=== PATIENT | male | born 1950 | race Caucasian/White ===

== ENCOUNTER 2019-02-12 16:03 | Inpatient (IN) | payer MEDICARE, OTHER ==
[~2019-02-12] VITALS: Ht 167.6 cm; Wt 72.6 kg
[~2019-02-12 16:03] MED LIST: ASPIR-LOW81 M1 PO; LOP50 PO; ZOC20 PO
[2019-02-12 16:30] VITALS: Ht 167.6 cm; Wt 72.6 kg
--- NOTE | 2019-02-12 16:39 | NUR ---
PT BROUGHT IN BY FOR DIZZINESS THAT STARTED THIS AM UPON AWAKENING UP. ALSO C/O CHRONIC RT LEG PAIN. DENIES CP OR SOB. RESP EVEN AND UNLABORED, INNAD AT 94%. DIZZINES GOT WORSE THIS MORNING WITH INCREASED IN DIFFICULTY IN WALKING IN THE LAST MONTH. DENIES FALL. MED HX: LYMPHOMA, BACK SURGERY, CARDIAC HX WITH IMPLANTED DEFIBRILATOR. DENIES FEVERS/CHILLS, NO COUGH. VSS, WAILL WAIT FOR ER MD SILVA.
[2019-02-12 18:59] LABS: BASOPHIL % 0.6 % (0-2)
[2019-02-12 19:01] LABS: PLATELET COUNT 560 x10^3mcL (130-400); RED CELL DISTRIBUTION WIDTH 18.9 % (11.5-14.5)
--- NOTE | 2019-02-12 19:01 | NUR ---
NO ACUTE CHNAGE IN CONDITON, MEDICATED ORDERED.
[2019-02-12 19:08] LABS: CALCIUM 9.5 mg/dL (8.5-10.1); CARBON DIOXIDE 27.1 mmol/L (21-32); CREATININE SERUM 2.5 mg/dL (0.7-1.3)
[2019-02-12 19:22] LABS: microscopic required? NO
[2019-02-12 19:22] LABS: BILIRUBIN TOTAL 0.3 mg/dL (0.20-1.00); MAGNESIUM 1.9 mg/dL (1.8-2.4)
[2019-02-12 19:23] LABS: ALBUMIN 2.3 g/dL (3.4-5.0); T4(THYROXINE) 3.2 ug/dL (4.7-13.3)
--- NOTE | 2019-02-12 19:27 | NUR ---
RECEIVED PT AWAKE, ALERT, RESPIRATIONS EVEN AND UNLABORED. IN INFUSING WELL AT THIS TIME. PT DENIES DIZZINESS. SAFETY PRECAUTIONS IN PLACE. SIGNIFICANT OTHER AT BEDSIDE
[2019-02-12 19:56] LABS: urine erythrocyte NEGATIVE (NEGATIVE)
--- NOTE | 2019-02-12 20:05 | NUR ---
PT WAS REPORTING SHORTNESS OF BREATH. PT NOTED TO BE SLIGHTLY TACHYPNIC. DENIES CHEST PAIN, PRESSURE. REPORTS DIZZINESS. PT WAS PLACED ON 2L 02/NC AND PLACED HOB AT [address] BRISCOE WAS MADE AWARE AND STATED TO HAVE ABG DRAWN. JAS ANDERSON WAS MADE AWARE. WILL CONTINUE TO MONITOR CLOSELY. SAFETY PRECAUTIONS IN PLACE
--- NOTE | 2019-02-12 20:09 | NUR ---
DR. BRISCOE WAS AT BEDSIDE TO ASSESS PATIENT. JAS RT AT BEDSIDE FOR ABG
--- NOTE | 2019-02-12 20:26 | NUR ---
DR. BRISCOE MADE AWARE OF CRITICAL CHEST XRAY REST, DR. BRISCOE VERBALIZED UNDERSTANDING AND WENT INTO ROOM TO SPEAK TO PATIENT REGARDING FINDINGS
--- NOTE | 2019-02-12 20:45 | NUR ---
PT DENIES SOB AT THIS TIME. AWAKE, ALERT, RESPIRATIONS EVEN AND UNLABORED. SITTING AT 90 DEGREE ANGLE. SIGNIFICANT OTHER AT BEDSIDE. SAFETY PRECAUTIONS IN PLACE
[2019-02-12] MEDS ORDERED: BAYER ASPIRIN R81 MG PO (20:53)
[2019-02-12] MEDS ORDERED: CARVEDILOL6.25 M1 PO (20:53)
[2019-02-12] MEDS ORDERED: AMIODARONE HCL200 MG PO (20:53)
[2019-02-12] MEDS ORDERED: LIPI10 PO (20:53)
[2019-02-12] MEDS ORDERED: NOR10T PO (20:54)
[2019-02-12] MEDS ORDERED: MIRTAZAPINE15 M2 PO (20:54)
[2019-02-12] MEDS ORDERED: NARCAN4 MG NS (20:54)
[2019-02-12] MEDS ORDERED: SENNA8.6 M2 PO (20:55)
[2019-02-12 21:24] LABS: FREE T4 0.52 ng/dL (0.76-1.46); T3 TOTAL 0.35 ng/mL
[2019-02-12 21:26] LABS: FREE THYROXINE INDEX 1.1 ug/dL (1.4-4.5); T4(THYROXINE) 3.2 ug/dL (4.7-13.3)
--- NOTE | 2019-02-12 21:33 | NUR ---
REPORT GIVEN TO HOSSEIN ARIAS, ALL QUESTIONS AND CONCERNS WERE ADDRESSED
--- NOTE | 2019-02-12 22:09 | NUR ---
RECEIVED [facility], ACCOMPANIED BY RN, TRANSPORTER, AND PT'S , JOAO CARPENTER. PT A/A/O X 4, CALM, COOPERATIVE. WEAKNESS TO BLE, WAS ABLE TO SCOOT OVER FROM GUERNEY TO BED ON HIS OWN; USES W/C @HOME/BEDSIDE; INCREASING WEAKNESS X 1 MONTH; FALL RISK PROTOCOL IN PLACE. ON TELE # 9, NSR, HR 76, DENIES CHEST PAIN OR DISCOMFORT AT THIS TIME. LUNGS CTAB, CHEST RISING EVENLY, 2LNC, 98%; NOTED ENLARGED NECK: PT STATES THAT IT IS BECAUSE OF "CANCER"; NO DYSPHAGIA, NO RESPIRATORY DISTRESS NOTED; TSH @ 40.95, AND PT DOES NOT HAVE DX OF HYPOTHYROIDISM. ABD SOFT, ROUND, NON-TENDER, NORMOACTIVE BOWEL SOUNDS X 4 QUADS, LAST BM 02/12/19, DIARRHEA, STATES LOST WEIGHT > 10# X 1 MONTH. VOIDS FREELY, C/O OLIGURIA. IV SITE LFA 20G, CDI. ORIENTED PT TO ROOM, BED CONTROLS, CALL LIGHT SYSTEM. SIDE RAILS UP X 2, BED IN LOW POSITION. WILL ENDORSE TO JUANA HIDALGO.
[2019-02-12 22:24] LABS: AMPHETAMINE QUAL UR NONE DETECTED (See below)
[2019-02-12 22:53] VITALS: BP 137/61
[2019-02-12 23:10] VITALS: BP 137/61
--- NOTE | 2019-02-13 03:03 | NUR ---
PT RESTING IN BED COMFORTABLY WITH EYES CLOSED. NASAL CANULA 2L DOES NOT APPEAR TO BE IN ANY ACUTE DISTRESS. BREATHING EVEN AND UNLABORED. SAFETY MEASURES ARE IN PLACE. CALL LIGHT IS WITHIN REACH. WILL MONITOR.
--- NOTE | 2019-02-13 03:04 | NUR ---
RESIDENT AND DR VALADEZ AWARE OF PT TSH LEVELS. NO NEW ORDERS AT THIS TIME.
[2019-02-13 05:57] VITALS: BP 124/61
--- NOTE | 2019-02-13 06:04 | NUR ---
SPOKE WITH PT HE DENIES PAIN AT THIS TIME. NO SOB OR CHEST PAIN NOTED ON 2L NASAL CANULA. PT DOES NOT APPEAR TO BE IN ANY ACUTE DISTRESS. SAFETY MEASURES IN PLACE. CALL LIGHT WITHIN REACH. WILL ENDORSE TO DAY SHIFT RN.
[2019-02-13 07:20] LABS: BASOPHIL % 0 % (0-2); RED CELL DISTRIBUTION WIDTH 18.3 % (11.5-14.5)
[2019-02-13 07:21] LABS: PLATELET COUNT 589 x10^3mcL (130-400)
--- NOTE | 2019-02-13 07:30 | NUR ---
PT IS AAOX4. RESP EVEN, SHALLOW AND UNLABORED. LUNG SOUNDS DIMINISHED BILATERAL BASES. TELE [address] READING NSR. ABDOMEN SOFT, NONTENDER, NONDISTENDED. BOWEL SOUNDS ACTIVE X4 QUADS. PT HAS C/O DIARRHEA. NO C/O OF N/V. PT HAS GENERALIZED WEAKNESS AND USES W/C AT BASELINE. SKIN CDI. NO EDEMA NOTED. PERIPHERAL PULSES MODERATELY PALPABLE. IVF RUNNING TO LFA. SITE WNL. PT DENIES PAIN AT THIS TIME. PT HAS L SIDED ENLARGED NECK SECONDARY TO LYMPHOMA. AREA IN IS INTACT AND EMISSIONS INSPECTOR. [facility]. BED IN LOWEST POSITION. FALL PROTOCOL FOLLOWED. CALL LIGHT WITHIN REACH.
[2019-02-13 07:31] LABS: BILIRUBIN TOTAL 0.3 mg/dL (0.20-1.00); CALCIUM 9.3 mg/dL (8.5-10.1); CARBON DIOXIDE 22.1 mmol/L (21-32); CREATININE SERUM 2.1 mg/dL (0.7-1.3)
[2019-02-13 07:34] LABS: ALBUMIN 2.3 g/dL (3.4-5.0); TOTAL PROTEIN, SERUM 5.9 g/dL (6.4-8.2)
[2019-02-13 08:09] VITALS: BP 121/65
--- NOTE | 2019-02-13 09:35 | NUR ---
NORCO 10/325MG PO GIVEN FOR LOWER THROBBING BACK PAIN 02/11. FLUIDS ENCOURAGED. SCHEDULED MEDS GIVEN, B/P 121/65, HR 72. PT IS SITTING UP IN BED VISITING WITH AT BEDSIDE. PT JUST COMPLETED RESP TX. RESP EVEN AND UNLABORED. NO RESP DISTRESS NOTED. CALL LIGHT WITHIN REACH.
--- NOTE | 2019-02-13 11:45 | NUR ---
PT IS SITTING UP AT BEDSIDE VISITING WITH . RESP EVEN AND UNLABORED. NO DISTRESS NOTED. CALL LIGHT WITHIN REACH.
[2019-02-13 12:52] VITALS: BP 121/65
--- NOTE | 2019-02-13 14:55 | NUR ---
[employer] CONTACTED, INTERROGATION OF THE PT'S PACEMAKER REQUESTED.
--- NOTE | 2019-02-13 15:29 | NUR ---
[employer] REFUSED TO INTERROGATE DEFIBRILLATOR WITH PT'S S/S THAT HAVE BEEN LISTED, I.E. DIZZINESS, SYNCOPE, BACK PAIN, WEIGHT LOSS. ONLINE PROJECT MANAGER STATED A REPRODUCTION ARTIST WILL NEED TO ORDER AND INTERROGATION. DR. DOWELL MADE AWARE. NO NEW ORDERS AT THIS TIME.
[2019-02-13 15:57] VITALS: BP 120/57
[2019-02-13 18:15] VITALS: BP 120/46
--- NOTE | 2019-02-13 18:29 | NUR ---
PT TO TRANSFER TO [facility] AT 1930. TO BE PICKED UP BY [facility]. REPORT GIVEN TO JUANA LANGFORD AT ANCHORAGE. PT AND PT'S MADE AWARE. TRANSFER FORMS SIGNED AND IN CHART. DISCHARGED FORMS SIGNED AND IN CHART. TRANSFER PLAN REVIEWED WITH PT AND FAMILY. WILL CONTINUE TO MONITOR AND ENDORSE ALL CARE TO NOC RN.
--- NOTE | 2019-02-13 19:36 | NUR ---
RECEIVED PT FROM DAY SHIFT RN. PT AAOX4 DENIES HEADACHE OR DIZZINESS. BREATHING EVEN AND UNLABORED, PT ON NC 2L/MIN WITH NO SOB NOTED. TELE #9 SR HR 78, PT DENIES CHEST PAIN. PT DENIES ANY DISTRESS AT THIS TIME. IV LFA PATENT, SL. GENERALIZED WEAKNESS NOTED. CALL BUTTON WITHIN REACH. AT BEDSIDE. WILL MONITOR.
--- NOTE | 2019-02-13 19:50 | NUR ---
[facility] HERE TO MANAGER STATE PATIENT AT THIS TIME. TELE BOX REMOVED. PT LEFT THE UNIT IN NO DISTRESS.
== END 2019-02-13 19:50 | disposition short-term general hospital (02) | DRG 691 ==
LOC: ED 16:03 → DU 20:50
PROVIDERS: Emergency Medicine; ADMIT Internal Medicine
DX: C85.98 Non-Hodgkin lymphoma, unspecified, lymph nodes of multiple sites (principal); J96.01 Acute respiratory failure with hypoxia; N17.0 Acute kidney failure with tubular necrosis; E78.00 Pure hypercholesterolemia, unspecified; D64.9 Anemia, unspecified; I12.9 Hypertensive chronic kidney disease with stage 1 through stage 4 chronic kidney disease, or unspecified chronic kidney disease; G89.29 Other chronic pain; M54.9 Dorsalgia, unspecified; K59.00 Constipation, unspecified; N18.9 Chronic kidney disease, unspecified; E03.9 Hypothyroidism, unspecified; I42.9 Cardiomyopathy, unspecified; Z66 Do not resuscitate; Z99.3 Dependence on wheelchair; Z92.3 Personal history of irradiation; Z68.25 Body mass index [BMI] 25.0-25.9, adult; Z92.21 Personal history of antineoplastic chemotherapy; Z95.810 Presence of automatic (implantable) cardiac defibrillator; Z91.19 Patient's noncompliance with other medical treatment and regimen
CPT/HCPCS: 36600; 82962; 83880; 84439; 94150; G0378; J1100; J3010; J7030; J7620